=== PATIENT | male | born 1965 | race Caucasian/White ===

== ENCOUNTER 2024-04-22 13:29 | Inpatient (IN) | payer MEDICAID, OTHER ==
[~2024-04-22] VITALS: Ht 165.1 cm; Wt 73.9 kg
[2024-04-22] MEDS ORDERED: ZOLPIDEM TARTRATE 10 MG TABLET PO PRN (15:15)
[2024-04-22] MEDS ORDERED: HALOPERIDOL 5 MG TABLET PO PRN (15:15)
[2024-04-22] MEDS ORDERED: LORazepam 2 MG TABLET PO PRN (15:15)
[2024-04-22 16:16] LABS: BASOPHILS % (AUTO) 0.3 % (0.0-2.0); EOSINOPHILS % (AUTO) 0.1 % (1.0-6.0); LYMPHOCYTES # (AUTO) 1.5 K/uL (1.0-4.8); MEAN CORPUSCULAR HEMOGLOBIN 30.5 pg (26.0-34.0); MEAN CORPUSCULAR HGB CONC 33.3 G/dL (31.0-37.0); MEAN CORPUSCULAR VOLUME 92 fL (80-100); MONOCYTES # (AUTO) 0.5 K/uL (0.1-1.0); MONOCYTES % (AUTO) 4.3 % (2.0-9.0); NEUTROPHILS # (AUTO) 9.2 K/uL (1.8-7.7); NEUTROPHILS % (AUTO) 82.3 % (40.0-70.0); PLATELET COUNT (AUTO) 205 K/uL (150-450); RED BLOOD CELL COUNT(AUTO) 5.24 MIL/uL (4.50-5.90); WHITE BLOOD COUNT (AUTO) 11.2 K/uL (4.5-11.0)
[2024-04-22 16:26] LABS: ANION GAP 10 mmol/L (8-16); CALCIUM, TOTAL 9.5 mg/dL (8.8-10.5); CARBON DIOXIDE 27 mmol/L (22-29); CHLORIDE 104 mmol/L (98-107); CREATININE 0.86 mg/dL (0.60-1.30); GLOMERULAR FILTR. RATE CALC > 60 mL/min (>60); GLUCOSE,RANDOM 119 mg/dL (70-110); POTASSIUM 3.9 mmol/L (3.5-5.1); SODIUM SERUM 141 mmol/L (136-145); UREA NITROGEN, BLOOD 14 mg/dL (7-18)
[2024-04-22 16:29] LABS: ALCOHOL, BLOOD (SERUM) < 3 mg/dL (0-10)
[2024-04-22 17:18] LABS: COVID AG,FIA SOURCE NASAL SWAB
[2024-04-22 17:37] LABS: SARS-COV2 (COVID) ANTIGEN,FIA Negative (Negative)
[2024-04-22 18:03] LABS: APPEARANCE,URINE CLEAR (CLEAR); BILIRUBIN,URINE NEGATIVE (NEGATIVE); COLOR,URINE LIGHT YELLOW (YELLOW); GLUCOSE, URINE (UA) NEGATIVE (NEGATIVE); KETONES,URINE NEGATIVE (NEGATIVE); LEUKOCYTE ESTERASE ,URINE NEGATIVE (NEGATIVE); NITRATE,URINE NEGATIVE (NEGATIVE); OCCULT BLOOD,URINE TRACE (NEGATIVE); PROTEIN,URINE TRACE mg/dL (NEGATIVE); SPECIFIC GRAVITIY, URINE 1.022 (1.003-1.030); UROBILINOGEN,URINE <=1.0 mg/dL (<=1.0)
[2024-04-22 18:09] LABS: AMPHET/METH SCREEN,URINE NEGATIVE (NEGATIVE); BARBITURATE SCREEN, URINE NEGATIVE (NEGATIVE); BENZODIAZEPINES SCREEN,URINE NEGATIVE (NEGATIVE); CANNABINOID SCREEN,URINE NEGATIVE (NEGATIVE); COCAINE SCREEN,URINE NEGATIVE (NEGATIVE); METHADONE SCREEN, URINE NEGATIVE (NEGATIVE); OPIATE SCREEN,URINE NEGATIVE (NEGATIVE); PHENCYCLIDINE SCREEN,URINE NEGATIVE (NEGATIVE)
[2024-04-22 18:10] LABS: ALCOHOL, URINE DRUG SCREEN NEGATIVE (NEGATIVE)
[2024-04-22 18:15] LABS: BACTERIA,URINE None Seen /HPF (None Seen); RBC,URINE 0-2 /HPF (0-2); SQUAMOUS EPITHELIAL CELL,UR Few /LPF (None Seen); WBC,URINE None Seen /HPF (0-5)
[2024-04-22 21:57] VITALS: BP 146/90; PULSE 82; RESP 20; TEMP 97.8; O2SAT 97
[2024-04-23 08:32] VITALS: BP 121/76; PULSE 74; RESP 16; TEMP 97.8; O2SAT 98
[2024-04-23] MEDS: SERTRALINE HCL 50 MG TABLET PO SCH (10:51)
[2024-04-23] MEDS ORDERED: ACETAMINOPHEN 325 MG TABLET PO PRN (16:00)
[2024-04-23] MEDS ORDERED: MAGNESIUM HYDROXIDE SUSPENSION 30 ML UDCUP PO PRN (16:00)
[2024-04-23] MEDS ORDERED: DOCUSATE SODIUM 100 MG CAPSULE PO PRN (16:00)
[2024-04-23] MEDS ORDERED: PETROLATUM,WHITE 28 GM JELLY TP PRN (16:00)
[2024-04-23] MEDS ORDERED: ONDANSETRON HCL 4 MG TABLET PO PRN (16:00)
[2024-04-23] MEDS ORDERED: CloNIDine HCL 0.1 MG TABLET PO PRN (16:00)
[2024-04-23] MEDS ORDERED: ALBUTEROL SULFATE HFA 90 MCG/PUFF 8 GM INHALER IH PRN (16:00)
[2024-04-23] MEDS ORDERED: IBUPROFEN 400 MG TABLET PO PRN (16:00)
[2024-04-23] MEDS ORDERED: MAG HYDROX/ALUMINUM HYD/SIMETH ES 30 ML SUSPENSION UDCUP PO PRN (16:00)
[2024-04-23] MEDS ORDERED: NICOTINE 14 MG/24 HOUR PATCH TD PRN (16:00)
[2024-04-23] MEDS ORDERED: LOPERAMIDE HCL 2 MG CAPSULE PO PRN (16:00)
[2024-04-23] MEDS ORDERED: GuaiFENesin/D-METHORPHAN [SUGAR-FREE] 200-20MG/10 ML SYRUP UDCUP PO PRN (16:00)
[2024-04-23 21:24] VITALS: BP 145/83; PULSE 78; RESP 16; TEMP 99.8; O2SAT 96
[2024-04-24 08:10] LABS: HEMOGLOBIN A1C 5.6 % (3.8-5.6)
[2024-04-24 08:12] LABS: CHOL/HDL RATIO 3.5 (4.2-7.3); THYROID STIMULATING HORMONE 2.88 uIU/mL (0.36-3.74)
[2024-04-24 08:26] VITALS: BP 134/84; PULSE 74; RESP 18; TEMP 97.6; O2SAT 97
[2024-04-24 20:24] VITALS: BP 142/99; PULSE 87; RESP 18; TEMP 98.3; O2SAT 98
[2024-04-25 08:37] VITALS: BP 130/87; PULSE 67; RESP 18; TEMP 98; O2SAT 97
[2024-04-25 20:59] VITALS: BP 130/72; PULSE 80; RESP 18; TEMP 98.2; O2SAT 95
[2024-04-26 08:17] VITALS: BP 155/88; PULSE 71; RESP 17; TEMP 98.3; O2SAT 98
[2024-04-26 20:34] VITALS: BP 145/88; PULSE 71; RESP 17; TEMP 98.5; O2SAT 97
[2024-04-27 08:38] VITALS: BP 117/81; PULSE 70; RESP 19; TEMP 98.2; O2SAT 96
[2024-04-27 09:24] LABS: APPEARANCE,URINE CLEAR (CLEAR); BILIRUBIN,URINE NEGATIVE (NEGATIVE); COLOR,URINE YELLOW (YELLOW); GLUCOSE, URINE (UA) NEGATIVE (NEGATIVE); KETONES,URINE NEGATIVE (NEGATIVE); LEUKOCYTE ESTERASE ,URINE NEGATIVE (NEGATIVE); NITRATE,URINE NEGATIVE (NEGATIVE); OCCULT BLOOD,URINE NEGATIVE (NEGATIVE); PH,URINE 6.5 (5.0-8.0); PH,URINE DRUG SCREEN 6.5 (5.0-8.0); PROTEIN,URINE NEGATIVE (NEGATIVE); SPECIFIC GRAVITIY, URINE 1.025 (1.003-1.030); UROBILINOGEN,URINE <=1.0 mg/dL (<=1.0)
[2024-04-27 09:33] LABS: ALCOHOL, URINE DRUG SCREEN NEGATIVE (NEGATIVE); AMPHET/METH SCREEN,URINE NEGATIVE (NEGATIVE); BARBITURATE SCREEN, URINE NEGATIVE (NEGATIVE); BENZODIAZEPINES SCREEN,URINE NEGATIVE (NEGATIVE); CANNABINOID SCREEN,URINE NEGATIVE (NEGATIVE); COCAINE SCREEN,URINE NEGATIVE (NEGATIVE); METHADONE SCREEN, URINE NEGATIVE (NEGATIVE); OPIATE SCREEN,URINE NEGATIVE (NEGATIVE); PHENCYCLIDINE SCREEN,URINE NEGATIVE (NEGATIVE)
[2024-04-27 22:09] VITALS: RESP 16; TEMP 97
[2024-04-28 09:52] VITALS: BP 123/79; PULSE 68; RESP 17; TEMP 97; O2SAT 96
[2024-04-28 21:00] VITALS: BP 137/75; PULSE 82; RESP 18; TEMP 97.4; O2SAT 97
[2024-04-29 08:52] VITALS: BP 127/80; PULSE 80; RESP 17; TEMP 97.9; O2SAT 97
[2024-04-29] MEDS ORDERED: SERT-439 PO (11:17)
== END 2024-04-29 16:00 | disposition home or self-care (01) | DRG 751 ==
LOC: EMS 13:29 → B2S 17:46
PROVIDERS: ADMIT Psychiatry & Neurology Child & Adolescent Psychiatry; ATTEND Psychiatry & Neurology Child & Adolescent Psychiatry
PROC: GZHZZZZ Group Psychotherapy (ICD-10-PCS; principal; 2024-04-23)
PROC: GZ56ZZZ Individual Psychotherapy, Supportive (ICD-10-PCS; 2024-04-23)
DX: F33.2 Major depressive disorder, recurrent severe without psychotic features (principal); R45.851 Suicidal ideations; E11.9 Type 2 diabetes mellitus without complications; I10 Essential (primary) hypertension; E78.00 Pure hypercholesterolemia, unspecified; D72.829 Elevated white blood cell count, unspecified; Z20.822 Contact with and (suspected) exposure to COVID-19
CPT/HCPCS: 80048; 80061; 80307; 81001; 81003; 83036; 84443; 85025; 99285; G0480